=== PATIENT | male | born 1970 | race Hispanic/Latino ===

== ENCOUNTER 2018-10-28 18:34 | Emergency (ER) | payer BC, SELFPAY ==
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
== END 2018-10-28 20:02 | disposition home or self-care (01) ==
LOC: ERS 18:34
DX: S16.1XXA Strain of muscle, fascia and tendon at neck level, initial encounter (principal); V43.02XA Car driver injured in collision with other type car in nontraffic accident, initial encounter
CPT/HCPCS: 70450; 72125

== ENCOUNTER 2021-02-24 01:59 | Observation (INO) | payer OTHER ==
[2021-02-24 02:15] VITALS: BMI 29.9
[2021-02-24] MEDS ORDERED: Acetaminophen 650 MG Suppository PR PRN (04:36)
[2021-02-24] MEDS ORDERED: Acetaminophen 325 MG TAB PO PRN (04:36)
[2021-02-24] MEDS ORDERED: Ondansetron PF 4 MG/2 ML Vial IVP PRN (04:36)
[2021-02-24] MEDS ORDERED: Ondansetron ODT 4 MG TAB PO PRN (04:36)
[2021-02-24] MEDS ORDERED: Sodium Chloride 0.9% 1,000 ML IV SCH (05:00)
[2021-02-24] MEDS ORDERED: Piperacillin/Tazobactam 3.375 GM in Sodium Chloride 0.9% 100 ML IVPB SCH ×2 (05:45→14:00)
[2021-02-24] MEDS ORDERED: Morphine 2 MG/ML VIAL SLOW IVP PRN (05:48)
[2021-02-24] MEDS ORDERED: Morphine 4 MG/ML VIAL ONE (05:54)
[2021-02-24] MEDS ORDERED: Ketorolac Tromethamine 30 MG/ML VIAL IVP SCH (07:45)
[2021-02-24] MEDS ORDERED: Lidocaine 1% w/Epinephrine 1:100K 30 ML VIAL ONE (09:56)
[2021-02-24] MEDS ORDERED: Bupivacaine 0.25% HCL 30 ML VIAL ONE (09:56)
[2021-02-24] MEDS ORDERED: Ketorolac Tromethamine 30 MG/ML VIAL IVP PRN (10:00)
[2021-02-24] MEDS ORDERED: Fentanyl 250 MCG/5 ML VIAL ONE (10:06)
[2021-02-24] MEDS ORDERED: PROPOFOL 200 MG/20 ML VIAL ONE (10:13)
[2021-02-24] MEDS ORDERED: Lidocaine 1% PF 5 ML VIAL ONE (10:13)
[2021-02-24] MEDS ORDERED: Rocuronium Bromide 10 MG/ML (10ML VIAL) ONE (10:13)
[2021-02-24] MEDS ORDERED: Glycopyrrolate 0.2 MG/ML 5 ML SYRINGE ONE (10:13)
[2021-02-24] MEDS ORDERED: Dexamethasone 20 MG/5 ML VIAL ONE (10:13)
[2021-02-24] MEDS ORDERED: Succinylcholine 200 MG/10 ml SYRINGE FS ONE (10:13)
[2021-02-24] MEDS ORDERED: Ondansetron PF 4 MG/2 ML Vial ONE (10:13)
[2021-02-24] MEDS ORDERED: Ibuprofen 600 MG TAB PO PRN (10:21)
[2021-02-24] MEDS ORDERED: Acetaminophen 500 MG TAB PO PRN (10:21)
[2021-02-24] MEDS ORDERED: traMADol HCl 50 MG TAB PO PRN (10:21)
[2021-02-24] MEDS ORDERED: Fentanyl 100 MCG/2 ML VIAL ONE (11:30)
[2021-02-24 13:57] VITALS: TEMP 98.4
[2021-02-24 15:49] VITALS: BP 148/85
== END 2021-02-24 15:30 | disposition home or self-care (01) ==
LOC: INTOOBSV 01:59 → SURG A 01:59
PROVIDERS: ADMIT Student in an Organized Health Care Education/Training Program; ATTEND Hospitalist
PROC: 0DTJ4ZZ Resection of Appendix, Percutaneous Endoscopic Approach (ICD-10-PCS; principal; 2021-02-24)
DX: K35.30 Acute appendicitis with localized peritonitis, without perforation or gangrene (principal); K66.0 Peritoneal adhesions (postprocedural) (postinfection); I10 Essential (primary) hypertension; Z90.49 Acquired absence of other specified parts of digestive tract; Z79.899 Other long term (current) drug therapy
CPT/HCPCS: 88304; J1100; J1885; J2270; J2405; J2543; J2704; J3010; J3490; J7050; S0020